=== PATIENT | female | born 1955 | race Caucasian/White ===

== ENCOUNTER 2016-07-11 06:12 | Day surgery (SDC) | payer BC ==
--- NOTE | 2016-07-02 14:07 | HP ---
DATE OF SURGERY: 07/11/2016. REASON FOR ADMISSION: Persistent headaches. Rule out temporal arteritis. BRIEF HISTORY: This is a 60-year-old female whose history dates back to March of 2016 when she 1st developed blurred vision. She was worked up and seen by a neurologist at that time. The workup has demonstrated her to have an elevated CRP and she is noted to have persistent headaches and therefore she has been referred here for further evaluation to rule out for temporal arteritis. Patient will undergo a right temporal artery biopsy. Past medical history significant for glaucoma, arthritic changes, anxiety and depressive disorder. PAST SURGICAL HISTORY: section, cervical laminectomy, cholecystectomy , and Mohs surgery. ALLERGIES: None. MEDICATIONS: Klonopin, Zoloft. SOCIAL HISTORY: Patient does not smoke nor drink. PHYSICAL EXAMINATION: HEENT: The patient has a palpable right temporal artery. Cranial nerves and ophthalmic evaluation not performed. Patient sees a neurologist as well as a neuroophthalmologist. IMPRESSION/PLAN: Persistent headaches, elevated CRP, and multi cranial neuropathy. Given these findings, the patient will be scheduled for a right temporal artery biopsy to rule out for temporal arteritis. The indications, alternatives, and complications discussed, questions answered. Raeann OVALLES [id number] cc: Siri Francisco MD; Edu Pierre MD MTD
[2016-07-11] MEDS ORDERED: ceFAZolin SODIUM 1 GM VIAL ONE (06:55)
[2016-07-11 07:08] VITALS: BMI 36.6
[2016-07-11] MEDS ORDERED: LIDOCAINE HCL 1%, 10 MG/ML (20ML VIAL) ONE (07:20)
[2016-07-11] MEDS ORDERED: MIDAZOLAM HCL 2 MG/2 ML SINGLE DOSE VIAL ONE ×2 (08:05→08:48)
[2016-07-11] MEDS ORDERED: LIDOCAINE HCL 1%, 10 MG/ML (20ML VIAL) IJ ONE (08:24)
[2016-07-11] MEDS ORDERED: PROPOFOL 20 ML ONE (08:47)
[2016-07-11] MEDS ORDERED: ONDANSETRON 4 MG/2 ML VIAL IVPUSH PRN (11:06)
[2016-07-11] MEDS ORDERED: oxyCODONE HCL 5 MG TABLET PO PRN ×2 (11:06→11:07)
[2016-07-11 11:08] VITALS: BP 132/69; PULSE 74; TEMP 97.9
[2016-07-11] MEDS ORDERED: LACTATED RINGERS SOLUTION 1,000 ML IV SCH (11:15)
--- NOTE | 2016-07-12 18:43 | OP ---
DATE OF OPERATION: 07/11/2016 PREOPERATIVE DIAGNOSIS: Persistent right-sided headaches. POSTOPERATIVE DIAGNOSIS: Persistent right-sided headaches. PROCEDURE: Right temporal artery biopsy with 5-cm wound closure. SURGEON: Layo Owen MD ASSISTANT DEAN OF STUDENTS: None. ANESTHESIA: Renato Rhodes MD (MAC/1% lidocaine without epinephrine). ESTIMATED BLOOD LOSS: Minimal. SPECIMENS: Temporal artery. INDICATIONS FOR PROCEDURE: This is a 60-year-old female with persistent right- sided headaches and blurred vision. The patient has been worked up extensively by Neurology and Rheumatology and therefore now is to undergo a right temporal artery biopsy to rule out for a temporal artery biopsy. DESCRIPTION OF PROCEDURE: The patient identified and appropriately positioned on the operating room table. Prior to prepping, the palpation of the right temporal artery was performed and the area was subsequently marked. The area was then prepped and draped in the usual sterile fashion using ChloraPrep. A Doppler then confirmed the area that was preoperatively marked with pulsations. Then 1% lidocaine without epinephrine was used for anesthesia, approximately 8 mL. The skin overlying the marked line was made and deepened through subcutaneous tissue. The temporalis fascia was divided sharply. The artery appeared just deep to the temporalis fascia; however, it had a very thinned out appearance. Palpation to this revealed no obvious pulsation at this point, probably secondary to patient's blood pressure of 97 as well as manipulation. Intraoperative Doppler over this area confirmed Doppler sounds. Dopplered off the obvious artery revealed no signals. Next, the artery was then subsequently divided from the loose areolar tissue sharply. Two branches were identified and subsequently tied off with 3-0 Vicryl suture. Proximally and distally the artery was tied off with 3-0 Vicryl as well. The artery length was 3.1 cm. The specimen was handed off and sent for frozen to confirm artery. Intraoperative Doppler after this segment was removed revealed no other pulsations. Wound was irrigated. The operative field examined and noted to be hemostatic. Temporalis fascia reapproximated and coapted with 3-0 Vicryl suture and the dermis reapproximated and coapted with inverted 4-0 subcuticular Biosyn, followed by Dermabond. At the conclusion of the case, sponge, needle, and lap count was correct. ATTESTATION: Brief operative note handwritten on the preprinted form. LAYO OWEN M.D. TOMER/[id number] CC: MD Edu Palacios MD MTDD
== END 2016-07-11 10:55 | disposition home or self-care (01) ==
LOC: FASU 06:12
PROVIDERS: ATTEND Surgery
PROC: 03BS0ZX Excision of Right Temporal Artery, Open Approach, Diagnostic (ICD-10-PCS; principal; 2016-07-11 08:24)
DX: R51 Headache (principal); H53.8 Other visual disturbances
CPT/HCPCS: 88305-TC; 88331-TC

== ENCOUNTER 2016-08-15 20:19 | Emergency (ER) | payer BC ==
--- NOTE | 2016-08-15 20:25 | PDOC ---
History of Present Illness - General History Source: Patient Exam Limitations: No Limitations - History of Present Illness Initial Comments: 08/15/16 20:30 The patient is a 60 year old female, with a significant past medical history of depression and anxiety, who presents to the emergency department with allergic reaction for the past 20 minutes The patient reports receiving an MRI with contrast earlier today at 9am. She reports about 15 mins prior to presentation having sudden onset of swollen tongue and eyes. She denies recent fevers, chills , headache or dizziness. She denies recent nausea, vomit, diarrhea or constipation. She denies recent dysuria, frequency, urgency or hematuria. She denies recent chest pain or shortness of breath. PAST MEDICAL HISTORY: See HPI PAST SURGICAL HISTORY: No significant history. FAMILY HISTORY: No pertinent history. SOCIAL HISTORY: Patient lives with family and is employed. MEDICATIONS: Reviewed. ALLERGIES: As per nursing notes. ROS General: No fevers or chills, no weakness, no weight loss HEENT: +swollen eyes/tongue. No change in vision. No sore throat. No ear pain CardioVascular: No chest pain or shortness of breath Respiratory:No cough, or wheezing. Gastrointestinal: No nausea, vomiting, diarrhea or constipation. No rectal bleeding Genitourinary: No dysuria, hematuria, or frequency Musculoskeletal: No joint or muscle pain or swelling Neurologic: No headache, vertigo, dizziness or loss of consciousness Psychiatric: No depression Skin: No rashes or easy bruising Endocrine: no increased thirst or abnormal weight change Allergic: no skin or latex allergy All other systems reviewed and normal Exam: General: Well-nourished well-developed individual, hyperventilating and anxious appearing. HEENT: Mild angioedema of the posterior oropharynx and tongue with none on the lips or face. Neck: Supple, no meningeal signs, no lymphadenopathy Eyes: Pupils equal reactive and round, extraocular motion intact Chest: Nontender to palpation Cardiac: S1-S2 normal, regular rate and rhythm, no murmurs rubs or gallops Respiratory: Lungs clear to auscultation bilateral Abdomen: Soft, nondistended, normal bowel sounds, nontender to palpation diffusely Extremities: Warm, dry, no cyanosis, clubbing, or edema Skin: Generalized flushing. No hives. Neuro: Alert and oriented x3, nonfocal exam, grossly intact, normal gait Psych: Normal mood and affect <O'Dick,Edu - Last Filed: 08/15/16 20:30> - General History Source: Patient Exam Limitations: No Limitations - History of Present Illness Initial Comments: 08/15/16 22:56 A portion of this note was documented by scribe services under my direction. I have reviewed the details of the note, within reason, and agree with the documentation. The case summary and management plan written by me. Reevaluation patient's symptoms are much improved the erythema is gone the tongue is improved and patient feels like she would like to go home. Assessment and plan: This is a 60-year-old female comes in complaining of tongue swelling and some itching secondary to an ALLERGIC reaction to an unknown substance. Patient had had IV contrast earlier in the day but has had multiple episodes where she has had IV contrast in the past without difficulty. Otherwise there was no new foods or identified factors. Patient was given Benadryl and Solu-Medrol here in the emergency room with improvement in her symptoms and discharged home will follow-up with her primary care doctor. <Dangelo Alexander I - Last Filed: 08/15/16 22:59> - General Chief Complaint: Allergic Reaction Stated Complaint: ALLERGIC RX Time Seen by Provider: 08/15/16 20:23 Past History <Edu Sauceda - Last Filed: 08/15/16 20:30> - Past Medical History Anemia: No Asthma: No Cancer: Yes Cardiac Disorders: No CVA: No COPD: No CHF: No Dementia: No Diabetes: No GI Disorders: Yes (GERD, DIVERTICULITIS) Disorders: Yes (DIVERTICULITIS) HTN: No Hypercholesterolemia: No Liver Disease: No Psychiatric Problems: Yes (DEPRESSION) Seizures: No Thyroid Disease: No - Surgical History Abdominal Surgery: No Appendectomy: No Cardiac Surgery: No Cholecystectomy: Yes Lung Surgery: No Neurologic Surgery: No Orthopedic Surgery: Yes (CERVICAL LAMINECTOMY) - Psycho/Social/Smoking Cessation Hx Anxiety: No Suicidal Ideation: No Smoking History: Never smoked Have you smoked in the past 12 months: No Number of Cigarettes Smoked Daily: 0 Hx Alcohol Use: Yes Drug/Substance Use Hx: No Substance Use Type: None Hx Substance Use Treatment: No <Dangelo Alexander I - Last Filed: 08/15/16 22:59> - Past Medical History Allergies/Adverse Reactions: Allergies Allergy/AdvReac Type Severity Reaction Status Date / Time No Known Allergies Allergy Verified 07/11/16 07:15 Home Medications: Ambulatory Orders Calcium Carbonate/Vitamin D3 [Calcium 600-Vit D3 800 Tablet] 1 each PO 2 TABS DAILY tablet 10/17/15 Calcium Polycarbophil [Fiber Laxative] 625 mg PO PRN tablet 10/17/15 Cholecalciferol (Vitamin D3) [Vitamin D3] 2,000 unit PO DAILY capsule 10/17/15 Fluticasone Propionate 1 spray NS BID bottle 10/17/15 Multivitamin [Daily Vitamin Formula] 1 each PO DAILY tablet 10/17/15 Acetaminophen [Tylenol .Regular Strength -] 650 mg PO Q6H PRN 07/03/16 Ibuprofen [Advil -] 1 each PO PRN PRN 07/03/16 Clonazepam [KlonoPIN] 0.5 mg PO BID 07/11/16 Methylprednisolone [Medrol Dose Wayne] 4 mg PO ASDIR #21 tablet 08/15/16 *DC/Admit/Observation/Transfer - Attestations Scribe Attestion: 08/15/16 20:28 Documentation prepared by Edu Sauceda, acting as biomedical engineering technician for Dangelo Alexander MD. <Edu Sauceda - Last Filed: 08/15/16 20:30> <Dangelo Alexander I - Last Filed: 08/15/16 22:59> Diagnosis at time of Disposition: Allergic reaction Qualifiers: Encounter type: initial encounter Qualified Code(s): T78.40XA - Allergy, unspecified, initial encounter - Discharge Dispostion Disposition: HOME Condition at time of disposition: Stable - Referrals Referrals: Edu Pirere MD [Primary Care Provider] - - Patient Instructions Additional Instructions: Take a long-acting histamine such as Nola or Zyrtec. In addition to that I am sending a prescription for a short steroid taper to your pharmacy if you are unable to control the symptoms with a long-acting antihistamine you can take the steroid. Return to the emergency department immediately with ANY new, persistent or worsening symptoms. Continue any medications as previously prescribed by your physician. You should follow up with your primary doctor as soon as possible regarding today's emergency department visit. . Please make sure your doctor reviews the results of your emergency evaluation. Thank you for coming to the Emergency Department today for your care. It was a pleasure to see you today. Please note that your evaluation is INCOMPLETE until you follow-up with your doctor.
[2016-08-15] MEDS ORDERED: methylPREDNISolone NA SUCC 125 MG/2 ML VIAL IVPB ONE (20:26)
[2016-08-15 20:45] VITALS: BP 137/75; PULSE 80; TEMP 97.7; BMI 35.9
--- NOTE | 2016-08-17 16:11 | EKG ---
Test Reason : Blood Pressure : / mmHG Vent. Rate : 074 BPM Atrial Rate : 074 BPM P-R Int : 172 ms QRS Dur : 088 ms QT Int : 412 ms P-R-T Axes : 055 050 031 degrees QTc Int : 457 ms NORMAL SINUS RHYTHM NORMAL ECG WHEN COMPARED WITH ECG OF 27-JUL-2009 17:02, NO SIGNIFICANT CHANGE WAS FOUND Confirmed by CHAVEZ JETT MD ([id number]) on 08/17/2016 4:10:57 PM Referred By: MD KLEIN Confirmed By:CHAVEZ JETT MD
== END 2016-08-15 23:12 | disposition home or self-care (01) ==
LOC: FER 20:19
PROC: 3E0333Z Introduction of Anti-inflammatory into Peripheral Vein, Percutaneous Approach (ICD-10-PCS; principal; 2016-08-15)
DX: T78.3XXA Angioneurotic edema, initial encounter (principal); T78.40XA Allergy, unspecified, initial encounter; X58.XXXA Exposure to other specified factors, initial encounter
CPT/HCPCS: 93005; 99282-25